=== PATIENT | male | born 1975 ===

== ENCOUNTER 2024-12-29 07:54 | Outpatient (REF) | payer OTHER, SELFPAY ==
--- OUTSIDE RECORDS SUMMARY | 2024-12-29 07:57 | XMS_ITS | Clinical Summary ---
Author Organization [facility] Address [address] [place] [address] Care Team Providers Care Manager In Training Name Role Phone Gavino Jarvis Primary Care Provider [phone] Allergies Active Allergy Reactions Criticality Noted Date Comments Penicillins Anaphylaxis High 02/08/2010 Medications hydroCHLOROthiaz landon (HYDRODIURIL) 12.5 mg tablet Take 12.5 mg by mouth. 05/04/2021 Active amLODIPine (NORVASC) 5 mg tablet Take 5 mg by mouth once a day. 05/04/2021 Active Active Problems Problem Noted Date Diagnosed Date Bone lesion 05/11/2021 Overview (05/22/2021): CT scan 04/2021: There is 7 mm radiolucent lesion in the posterior aspect of the right iliac bone without cortical break or abnormalities in the adjacent soft tissues; Referred to ortho Claudication 04/29/2019 Peripheral vascular disease 05/13/2018 Anal fistula 08/21/2016 External hemorrhoid 07/23/2016 Steatohepatitis, non-alcoholic 11/18/2013 Overview (05/22/2021): Associated with obesity History of GI bleed 01/07/2013 Overview (05/22/2021): Chronic small volume rectal bleeding. Neg CN 01/07/2013. 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 Family History Medical History Relation Name Comments Cancer Neg Hx Social History Tobacco Use Types Packs/Day Years Used Date Smoking Tobacco: Never Smokeless Tobacco: Never Alcohol Use Standard Drinks/Week Comments Not Currently 0 (1 standard drink = 0.6 oz pur e alcohol) Sex and Gender Information Value Date Recorded Sex Assigned at Male 05/21/2021 7:43 PM EDT Legal Sex Male 3:04 PM EDT Gender Identity Male 05/21/2021 7:43 PM EDT Sexual Orientation Straight 05/21/2021 7: 43 PM EDT 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 Not on file Not on file Not on fi le Last Filed Vital Signs Vital Sign Reading Time Taken Comments Blood Pressure 132/87 05/22/2021 10:54 AM EDT Pulse 69 05/22/2021 10:54 AM EDT Temperature - - Respiratory Rate - - Oxygen Saturation - - Inhaled Oxygen Concentration - - Weight 125.2 kg (276 lb) 05/22/2021 10:54 AM EDT Height 167.6 cm (5' 6 ) 05/22/2021 10:54 AM EDT Body Mass Index 44.55 05/22/2021 10:54 AM EDT Plan of Treatment Health Maintenance Due Date Last Done Comments Cologuard 1976 Colon Cancer Screening 1976 Colonoscopy 1976 FOBT / Fit Test 1976 HIV Screening 1976 Hepatitis C Screening 1976 Sigmoidoscopy 1976 Hepatitis B Vaccines (1 of 3 - 19+ 3-dose series) 1995 DTaP,Tdap,and Td Vaccines (2 - Td or Tdap) 07/08/2019 07/08/2009 Basic Metabolic Panel 04/03/2022 04/03/2021 COVID-19 Vaccine ( - 2023-2 5 season) 2024 Alcohol/Substance Use Screening 09/23/2024 Depression Screening and Follow-Up 09/23/2024 Social Drivers of Health Isabel ual Screening 09/23/2024 Influenza Vaccine (Season Ended) 2025 07/23/20 16 RSV Vaccine (60+ years old a nd patients) (1 - 1-dose 75+ series) 2051 Pneumococcal Vaccine: Pediat an (0-5 Years) and At-Risk Patients (6-50 Years) Aged Out No longer eligible b ased on patient's age to complete this topic Insurance [employer] Care Teams Manager In Training Relationship Specialty Start Date End Date Gavino Jarvis PCP - General 05/11/21
--- OUTSIDE RECORDS SUMMARY | 2024-12-29 07:57 | XMS_ITS | Clinical Summary ---
Author Organization [employer] Address [address] [place] [address] [address] [place] [address] Care Team Providers Care Oceanographer Physical Name Role Phone Unavailable Primary Care Provider Unavailabl e Social History Tobacco Use Types Packs/Day Years Used Date Smoking Tobacco: Never Assessed Sex and Gender Information Value Date Recorded Sex Assigned at Male 07/23/2022 10:23 AM EDT Legal Sex Male 10:23 AM EDT Gender Identity Male 07/23/2022 10:23 AM EDT Sexual Orientation Straight 07/23/2022 10 :23 AM EDT Plan of Treatment Health Maintenance Due Date Last Done Comments CT Colonography 1976 Colonoscopy 1976 Colorectal Cancer Screening 1976 Depression Screening 1976 FIT DNA/Cologuard 1976 FIT 1976 FOBT 1976 Lipid Panel 1976 Sigmoidoscopy 1976 Alcohol/Substance Use Screening 1988 Tobacco Screening 1988 Family Planning (PISQ) 1991 Hepatitis B Vaccines (1 of 3 - 19+ 3-dose series) 1995 COVID-19 Vaccine (2023-2 5 season) 2024 Influenza Vaccine (#1) 2024 07/23/2016 Zoster Vaccines (1 of 2) 2026 DTaP/Tdap/Td Vaccines (3 - T d or Tdap) 07/19/2033 07/19/2023, 07/08/2009 RSV Patients and Patients Aged 60 years or older (1 - 1-dose 75+ series) 2051 HIB Vaccines Aged Out No longer eligi ble based on patient's age to complete this topic HPV Vaccines Aged Out No longer eligi ble based on patient's age to complete this topic Hepatitis A Vaccines Aged Out No long er eligible based on patient's age to complete this topic IPV Vaccines Aged Out No longer eligi ble based on patient's age to complete this topic Meningococcal Vaccine Aged Out No magnus alen eligible based on patient's age to complete this topic Pneumococcal Vaccine: Pediatrics (0 to 5 Years) and At-Risk Patients (6 to 49) Years) Aged Out No longer eligible b ased on patient's age to complete this topic RSV under 20 months Aged Out No longe r eligible based on patient's age to complete this topic Rotavirus Vaccines Aged Out No longer eligible based on patient's age to complete this topic
--- OUTSIDE RECORDS SUMMARY | 2024-12-29 07:57 | XMS_ITS | Clinical Summary ---
Author Organization [place] [id number] [address] [facility], [facility] Building Address [address] [place] [id number] Phone Care Team Providers Care Manager Poker Name Role Phone Gavino Jarvis MD Primary Care Provider [phone] Allergies Active Allergy Reactions Criticality Noted Date Comments Penicillins 02/08/2010 Medications hydroCHLOROthiazi de (HYDRODIURIL) 25 mg tabletIndications :Primary hypertension Take 1 tablet (25 mg total) by mouth 1 (one) time each day. 30 each 5 11/12/2024 05/11/20 25 Active amLODIPine (NORVASC) 5 mg tablet Take 1 tablet (5 mg total) by mouth 1 (one) time each day. 90 each 1 11/12/2024 05/11/20 25 Active Active Problems Problem Noted Date Diagnosed Date Severe obesity (BMI 35.0-35.9 with comorbidity) 11/12/2024 Non-compliance 06/12/2023 Bone lesion 05/11/2021 Overview (10/07/2024): CT scan 04/2021: There is 7 mm radiolucent lesion in the posterior aspect of the right iliac bone without cortical break or abnormalities in the adjacent soft tissues; Referred to ortho Claudication 04/29/2019 Peripheral vascular disease 05/13/2018 Anal fistula 08/21/2016 External hemorrhoid 07/23/2016 Steatohepatitis, non-alcoholic 11/18/2013 Overview (10/07/2024): Associated with obesity Corneal scar 07/11/2009 Pterygium 07/11/2009 Hypertension 07/08/2009 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 Encounters Date Type Department Care Team Description 11/12/2024 8:15 AM EST Office Visit Internal Medicine - [facility] [address] [place] [id number] Gavino Jarvis MD Severe obesity (BMI 35.0-35.9 with comorbidity) (CMS/HCC) (Primary Dx); Primary hypertension; Sweating abnormality from Last 3 Months Immunizations Name Administration Dates Next Due Influenza trivalent, with pr eservative (Fluzone; Afluria) 6mo and older 07/23/2016 Td Tetanus diptheria (Tdvax) 7yo and older 07/19 Tdap Tetanus diptheria acell ular pertussis (Boostrix; Adacel) 7yo and older 07/08/2009 Surgical History Surgery Date Site/Laterality Comments TONSILLECTOMY PROCEDURE: HISTORICAL TONSILLECTOMY COLONOSCOPY 2012 PROCEDURE: HISTORICAL COLONOSCOPY; COMMENT: normal OTHER SURGICAL HISTORY 2015 PROCEDURE: OK SURG TX ANAL FISTULA INTERSPHINCTERIC; COMMENT: Dr Mazariegos @ [facility]. Medical History Medical History Date Comments Osteoma of nasal sinus DX:Osteom a of nasal sinus; COMMENT: surgery scheduled for 02/15/10 Steatohepatitis, non-alcoholic 11/18/2013 D X:Steatohepatitis, non-alcoholic; COMMENT: Associated with obesity Claudication (CMS/HCC) 04/29/2019 DX:Claudi cation ([facility]) Corneal scar 07/11/2009 DX:Corneal scar External hemorrhoid 07/23/2016 DX:External hemorrhoid Anal fistula 08/21/2016 DX:Anal fistula History of GI bleed 01/07/2013 DX:History o f GI bleed; COMMENT: Chronic small volume rectal bleeding. Neg CN 01/07/2013. Hypertension 07/08/2009 DX:Hypertension Morbid obesity with BMI of 4 5.0-49.9, adult (CMS/HCC) 03/03/2010 DX:Morbid obesity with BMI o f 45.0-49.9, adult ([facility]) Peripheral vascular disease (CMS/HCC) 05/13/2018 DX:Peripheral vascular disease (HCC) Pterygium 07/11/2009 DX:Pterygium Family History Medical History Relation Name Comments Blindness Father Cataracts Father Cataracts Uncle paternal retini tis pigmentosa Glaucoma Neg Hx Macular degeneration Neg Hx Strabismus Neg Hx Relation Name Status Comments Brother Alive Father Alive Mother Alive Sister Alive Uncle Social History Tobacco Use Types Packs/Day Years Used Date Smoking Tobacco: Never Smokeless Tobacco: Never Alcohol Use Standard Drinks/Week Comments Yes 0 (1 standard drink = 0.6 oz pur e alcohol) Sex and Gender Information Value Date Recorded Sex Assigned at Not on file Legal Sex Male 4:34 AM EST Gender Identity Not on file Sexual Orientation Not on file Obstetrics History Last Filed Vital Signs Vital Sign Reading Time Taken Comments Blood Pressure 164/104 11/12/2024 8:07 AM EST Pulse 70 11/12/2024 8:07 AM EST Temperature - - Respiratory Rate - - Oxygen Saturation - - Inhaled Oxygen Concentration - - Weight 109 kg (239 lb 3.2 oz) 11/12/2024 8:07 AM EST Height 167.6 cm (5' 6 ) 11/12/2024 8:07 AM EST Body Mass Index 38.61 11/12/2024 8:07 AM EST Plan of Treatment Upcoming Encounters Date Type Department Care Team (Late st Contact Info) Description 04/06/2025 8:30 AM EDT Office Visit Internal Medicine - [address] [phone] Gavino Jarvis MD [address] [place] [id number] Health Maintenance Due Date Last Done Comments Hepatitis B Vaccines (1 of 3 - 19+ 3-dose series) 1995 Pneumococcal Vaccine: Pediatrics (0 to 5 Years) and At-Risk Patients (6 to 64 Years) (1 of 2 - PCV) 1995 Depression Screening 08/26/2022 HIV Screening 08/26/2022 Hepatitis C Screening 08/26/2022 Social Influencers of Health Screening 08/26/2022 COVID-19 Vaccine (1 - 2023-2 5 season) 2024 Influenza Vaccine (#1) 2024 07/23/2016 Hypertension/CHF/CAD Annual BMP Blood Test 11/12/2025 11/12/2024, 03/05/2024, 03/05/2024 Cholesterol Screening (Lipid Panel) 11/12/2029 11/12/2024, 03/05/2024, 03/05/2024 Colorectal Cancer Screening: Colonoscopy 01/18/2032 01/17/2022 DTaP,Tdap,and Td Vaccines (3 - Td or Tdap) 07/19/2033 07/19/2023, 07/08/2009 HIB Vaccines Aged Out No longer eligi [...] on patient's age to complete this topic MMR Vaccines Aged Out No longer eligi ble based on patient's age to complete this topic Meningococcal ACWY Vaccine Aged Out N o longer eligible based on patient's age to complete this topic Meningococcal B Vaccine Aged Out No l onger eligible based on patient's age to complete this topic RSV Immunization Patients Under 20 months Aged Out No longer eligible b ased on patient's age to complete this topic Varicella Vaccines Aged Out No longer eligible based on patient's age to complete this topic Procedures Procedure Name Priority Date/Time Associated Diagnosis Comments ALANINE AMINOTRANSFERASE Routine 025 8:45 AM EST Primary hypertension ASPARTATE AMINOTRANSFERASE Routine 11/12/2024 8:45 AM EST Primary hypertension BASIC METABOLIC PANEL Routine 11/12/2024 8:45 AM EST Primary hypertension LIPID PANEL WITH REFLEX TO DIRECT LDL Routine 11/12/2024 8:45 AM EST Primary hypertension HM COLONOSCOPY Routine 01/17/2022 from Last 3 Months or Most Recently Relevant to Health Maintenance Results * (ABNORMAL) Lipid panel with reflex to direct LDL (11/12/2024 8:45 AM EST) Cholesterol 191 0 - 200 mg/dL LAB CHEMISTRY METHOD 11/12/2024 12:44 PM [facility] Triglycerides 186(H) 0 - 150 mg/dL LAB CHEMISTRY METHOD 11/12/2024 12:44 PM [facility] HDL 63 >=40 mg/dL LAB CHEMISTRY METHOD 11/12/2024 12:44 PM [facility] LDL Calculated 91 0 - 100 mg/dL LAB CHEMISTRY METHOD 11/12/2024 12:[address] [facility] VLDL Cholesterol Eddie 37.2 mg/dL LAB CHEMISTRY METHOD 11/12/2024 12:44 PM [facility] Non HDL Chol. (LDL+VLDL) 128 <145 mg/dL LAB CHEMISTRY METHOD 11/12/2024 12:44 PM [facility] Chol/HDL Ratio 3.0 0.0 - 4.4 LAB CHEMISTRY METHOD 11/12/2024 12:44 PM [facility] Blood Venous blood specimen / Unknown Venipuncture / Unknown 11/12/2024 8:45 AM EST 11/12/2024 8:45 AM EST us Gavino Jarvis MD LAB BLOOD ORDERABLES Final Res ult [facility] [address] [place] [address], * Alanine aminotransferase (11/12/2024 8:45 AM EST) ALT (SGPT) 35 10 - 60 unit/L LAB CHEMISTRY METHOD 11/12/2024 12:42 PM [facility] Blood Venous blood specimen / Unknown Venipuncture / Unknown 11/12/2024 8:45 AM EST 11/12/2024 8:45 AM EST us Gavino Jarvis MD LAB BLOOD ORDERABLES Final Res ult Performing Organization Address [facility]/ZIP Co de Phone Number [facility] [address] [place] [address], * Aspartate aminotransferase (11/12/2024 8:45 AM EST) AST (SGOT) 27 10 - 42 unit/L LAB CHEMISTRY METHOD 11/12/2024 12:42 PM [facility] Blood Venous blood specimen / Unknown Venipuncture / Unknown 11/12/2024 8:45 AM EST 11/12/2024 8:45 AM EST Gavino Jarvis MD LAB BLOOD ORDERABLES Final Res ult Performing Organization Address [facility]/ZIP Co de Phone Number [facility] [address] [place] [address], [place] [phone] * Basic metabolic panel (11/12/2024 8:45 AM EST) Sodium 136 133 - 145 mmol/L LAB CHEMISTRY METHOD 11/12/2024 12:42 PM [facility] Potassium 4.1 3.5 - 5.5 mmol/L LAB CHEMISTRY METHOD 11/12/2024 12:42 PM [facility] Chloride 101 96 - 110 mmol/L LAB CHEMISTRY METHOD 11/12/2024 12:42 PM [facility] CO2 29 21 - 32 mmol/L LAB CHEMISTRY METHOD 11/12/2024 12:42 PM [facility] Anion Gap 6 3 - 11 LAB CHEMISTRY METHOD 11/12/2024 12:42 PM [facility] Glucose 99 70 - 100 mg/dL LAB CHEMISTRY METHOD 11/12/2024 12:42 PM [facility] BUN 14 5 - 25 mg/dL LAB CHEMISTRY METHOD 11/12/2024 12:42 PM [facility] Creatinine 0.95 0.70 - 1.30 mg/dL LAB CHEMISTRY METHOD 11/12/2024 12:[address] [facility] eGFR 99 >=60 mL/min/1. 73m2 LAB CHEMISTRY METHOD 11/12/2024 12:[address] [facility] Comment:Calculation based on the??Chronic Kidney Disease Epidemiology Collaboration (CKD-EPI) equation refit??without adjustment for race. BUN/Creatinine Ratio 14.7 LAB CHEMISTRY METHOD 11/12/2024 12:[address] [facility] Calcium 9.1 8.5 - 10.5 mg/dL LAB CHEMISTRY METHOD 11/12/2024 12:[address] [facility] Blood Venous blood specimen / Unknown Venipuncture / Unknown 11/12/2024 8:45 AM EST 11/12/2024 8:45 AM EST Gavino Jarvis MD LAB BLOOD ORDERABLES Final Res ult [facility] [address] [place] [address], * Colonoscopy (01/17/2022) Colonoscopy no interpretation , abstracted Anatomical Region Laterality Modality Other Historical Provider HEALTH MAINTENANCE Final Result from Last 3 Months or Most Recently Relevant to Health Maintenance Insurance [facility] [employer] [facility] Care Teams Manager Poker Relationship Specialty Start Date End Date Gavino Jarvis MD [address] [place] [id number] PCP - General Internal Medicine 11/10/24
--- OUTSIDE RECORDS SUMMARY | 2024-12-29 07:57 | XMS_ITS | Encounter Summary ---
Author Organization [facility] Address [address] [facility] [address] [place] [address] Care Team Providers Care Presser And Shaper Knitted Goods Name Role Phone Unavailable Primary Care Provider Unavailabl e Encounter Details Date Type Department Care Team (Latest Contact Info) Description 04/20/2022 Abstract [facility] CONVERSIONS Dental, Provider, DDS Social History Tobacco Use Types Packs/Day Years Used Date Smoking Tobacco: Never Assessed Sex and Gender Information Value Date Recorded Sex Assigned at Male 07/23/2022 10:23 AM EDT Legal Sex Male 10:23 AM EDT Gender Identity Male 07/23/2022 10:23 AM EDT Sexual Orientation Straight 07/23/2022 10 :23 AM EDT documented as of this encounter Plan of Treatment Not on file documented as of this encounter Visit Diagnoses Not on filedocumented in this encounter
--- OUTSIDE RECORDS SUMMARY | 2024-12-29 07:57 | XMS_ITS | Encounter Summary ---
Author Organization [facility] Address [address] [place] [address] Care Team Providers Care Sand Polisher Name Role Phone Unavailable Primary Care Provider Unavailabl e Encounter Details Date Type Department Care Team (Latest Contact Info) Description 09/02/2020 Abstract C CONVERSIONS Dental, Provider, DDS Social History Tobacco [...]
--- OUTSIDE RECORDS SUMMARY | 2024-12-29 07:57 | XMS_ITS | Referral Summary ---
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
== END 2024-12-29 07:55 | disposition home or self-care (01) ==
LOC: HO.HOSX 07:54
DX: M25.531 Pain in right wrist (principal); R61 Generalized hyperhidrosis
CPT/HCPCS: 99202

== ENCOUNTER 2024-12-29 08:07 | Outpatient (AMB) | payer OTHER, SELFPAY ==
--- OUTSIDE RECORDS SUMMARY | 2024-12-29 08:19 | XMS_ITS | Referral Summary ---
Author Organization [facility] Address [address] [place] [address] Care Team Providers Care Architecture Consultant Name Role Phone Gavino Jarvis Primary Care Provider [phone] Allergies Active Allergy Reactions Criticality Noted Date [...] Treatment Not on file [place] [address] Care Teams Architecture Consultant Relationship Specialty Start Date End Date Gavino Jarvis PCP - General 05/11/21
--- OUTSIDE RECORDS SUMMARY | 2024-12-29 08:19 | XMS_ITS | Encounter Summary ---
Author Organization [facility] Address [address] [facility] [address] [place] [address] Care Team Providers Care Technical Training Specialist Name Role Phone Unavailable Primary Care Provider [...]
--- OUTSIDE RECORDS SUMMARY | 2024-12-29 08:19 | XMS_ITS | Clinical Summary ---
Author Organization [employer] Address [address] [place] [address] [address] [place] [address] Care Team Providers Care Senior Field Engineer Name Role Phone Unavailable Primary Care Provider [...]
--- OUTSIDE RECORDS SUMMARY | 2024-12-29 08:19 | XMS_ITS | Encounter Summary ---
Author Organization [facility] Address [address] [place] [address] Care Team Providers Care Reference Test Clerk Name Role Phone Unavailable Primary Care Provider [...]
--- OUTSIDE RECORDS SUMMARY | 2024-12-29 08:19 | XMS_ITS | Clinical Summary ---
Author Organization [place] [address] [address] [facility] Address [address] [place] [phone] Phone Care Team Providers Care State Archivist Name Role Phone Gavino Jarvis MD Primary Care Provider [phone] Allergies Active Allergy Reactions Criticality Noted Date [...] Visit Internal [facility] - [facility] [address] [place] [id number] Gavino Jarvis MD Severe obesity (BMI 35.0-35.9 [...] COMMENT: normal OTHER SURGICAL HISTORY 2015 PROCEDURE: [place] SURG TX ANAL FISTULA INTERSPHINCTERIC; COMMENT: Dr Mazariegos @ [facility]. Medical History Medical History Date Comments Osteoma of nasal sinus DX:Osteom a of nasal sinus; COMMENT: surgery scheduled for 02/15/10 Steatohepatitis, non-alcoholic 11/18/2013 D X:Steatohepatitis, non-alcoholic; COMMENT: Associated with obesity Claudication (CMS/HCC) 04/29/2019 DX:Claudi cation ([facility]) Corneal scar 07/11/2009 DX:Corneal scar External hemorrhoid 07/23/2016 DX:External hemorrhoid Anal fistula 08/21/2016 DX:Anal fistula History of GI bleed 01/07/2013 DX:History o f GI bleed; COMMENT: Chronic small volume rectal bleeding. Neg CN 01/07/2013. Hypertension 07/08/2009 DX:Hypertension Morbid obesity with BMI of 4 5.0-49.9, adult (CMS/HCC) 03/03/2010 DX:Morbid obesity with BMI o f 45.0-49.9, adult ([facility]) Peripheral vascular disease (CMS/HCC) 05/13/2018 DX:Peripheral vascular [...] AM EDT Office Visit Internal Medicine - [address] [phone] Gavino Jarvis MD [address] [place] [phone] Health Maintenance Due Date Last Done Comments [...] mg/dL LAB CHEMISTRY METHOD 11/12/2024 12:44 PM [facility] Triglycerides 186(H) 0 - 150 mg/dL LAB CHEMISTRY METHOD 11/12/2024 12:44 PM [facility] HDL 63 >=40 mg/dL LAB CHEMISTRY METHOD 11/12/2024 12:44 PM [facility] LDL Calculated 91 0 - 100 mg/dL LAB CHEMISTRY METHOD 11/12/2024 12:44 PM EST [facility] VLDL Cholesterol Eddie 37.2 mg/dL LAB CHEMISTRY METHOD 11/12/2024 12:44 PM [facility] Non HDL Chol. (LDL+VLDL) 128 <145 mg/dL LAB CHEMISTRY METHOD 11/12/2024 12:44 PM [facility] Chol/HDL Ratio 3.0 0.0 - 4.4 LAB CHEMISTRY METHOD 11/12/2024 12:44 PM [facility] Blood Venous blood specimen / Unknown Venipuncture / Unknown 11/12/2024 8:45 AM EST 11/12/2024 8:45 AM EST us Gavino Jarvis MD LAB BLOOD ORDERABLES Final Res ult [facility] [address] [place] [address], * Alanine aminotransferase (11/12/2024 8:45 AM EST) ALT (SGPT) 35 10 - 60 unit/L LAB CHEMISTRY METHOD 11/12/2024 12:42 PM [facility] Blood Venous blood specimen / Unknown Venipuncture / Unknown 11/12/2024 8:45 AM EST 11/12/2024 8:45 AM EST us Gavino Jarvis MD LAB BLOOD ORDERABLES Final Res ult Performing Organization Address [facility]/ZIP Co de Phone Number [facility] [address] [place] [address], * Aspartate aminotransferase (11/12/2024 8:45 AM EST) AST (SGOT) 27 10 - 42 unit/L LAB CHEMISTRY METHOD 11/12/2024 12:42 PM [facility] Blood Venous blood specimen / Unknown Venipuncture / Unknown 11/12/2024 8:45 AM EST 11/12/2024 8:45 AM EST Gavino Jarvis MD LAB BLOOD ORDERABLES Final Res ult Performing Organization Address [facility]/ZIP Co de Phone Number [facility] [address] [place] [address], [place] [phone] * Basic metabolic panel (11/12/2024 8:45 AM EST) Sodium 136 133 - 145 mmol/L LAB CHEMISTRY METHOD 11/12/2024 12:42 PM [facility] Potassium 4.1 3.5 - 5.5 mmol/L LAB CHEMISTRY METHOD 11/12/2024 12:42 PM [facility] Chloride 101 96 - 110 mmol/L LAB CHEMISTRY METHOD 11/12/2024 12:42 PM [facility] CO2 29 21 - 32 mmol/L LAB CHEMISTRY METHOD 11/12/2024 12:42 PM [facility] Anion Gap 6 3 - 11 LAB CHEMISTRY METHOD 11/12/2024 12:42 PM [facility] Glucose 99 70 - 100 mg/dL LAB CHEMISTRY METHOD 11/12/2024 12:42 PM [facility] BUN 14 5 - 25 mg/dL LAB CHEMISTRY METHOD 11/12/2024 12:42 PM [facility] Creatinine 0.95 0.70 - 1.30 mg/dL LAB CHEMISTRY METHOD 11/12/2024 12:42 PM EST [facility] eGFR 99 >=60 mL/min/1. 73m2 LAB CHEMISTRY METHOD 11/12/2024 12:42 PM EST [facility] Comment:Calculation based on the??Chronic Kidney Disease Epidemiology Collaboration (CKD-EPI) equation refit??without adjustment for race. BUN/Creatinine Ratio 14.7 LAB CHEMISTRY METHOD 11/12/2024 12:42 PM EST [facility] Calcium 9.1 8.5 - 10.5 mg/dL LAB CHEMISTRY METHOD 11/12/2024 12:42 PM EST [facility] Blood Venous blood specimen / Unknown Venipuncture / Unknown 11/12/2024 8:45 AM EST 11/12/2024 8:45 AM EST Gavino Jarvis MD LAB BLOOD ORDERABLES Final Res ult [facility] [address] [place] [address], * Colonoscopy (01/17/2022) Colonoscopy no interpretation , abstracted Anatomical Region Laterality Modality Other Historical Provider HEALTH MAINTENANCE Final Result from Last 3 Months or Most Recently Relevant to Health Maintenance Insurance [facility] Care Teams State Archivist Relationship Specialty Start Date End Date Gavino Jarvis MD [address] [place] [phone] PCP - General Internal Medicine 11/10/24
--- OUTSIDE RECORDS SUMMARY | 2024-12-29 08:19 | XMS_ITS | Clinical Summary ---
Author Organization [facility] Address [address] [place] [address] Care Team Providers Care Passenger Elevator Operator Name Role Phone Gavino Jarvis Primary Care Provider [phone] Allergies Active Allergy Reactions Criticality Noted Date [...] this topic Insurance [employer] Care Teams Passenger Elevator Operator Relationship Specialty Start Date End Date Gavino Jarvis PCP - General 05/11/21
--- NOTE | 2024-12-29 08:28 | A.OFFVIS_ITS ---
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 Patient reports swelling in both of his hands has has been present since he was a child. He wa kes up with swelling in his hands and feet. He profusely sweats in both of his hands, stating his hands become soaked. At night he has numbness and tingling. Hx of left hand CTR. No other tx. Denies injury. 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 Patient reports swelling in both of his hands has has been present since he was a child. He wakes up with swelling in his hands and feet. He profusely sweats in both of his hands, stating his hands become soaked. At night he has numbness and tingling. Hx of left hand CTR. No other tx. Denies injury. 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 Neuro: Normal sensation of the tips of all digits of the bilateral hands at this time Vascular: Cap refill brisk Pain: No tenderness to palpation of bilateral hands No pain with ROM ROM: Patient is able to make a closed fist and extend all digits of bilateral hands fully Skin: Significant sweating noted on bilateral hands No lacerations or abrasions. General: No ecchymosis, erythema, or evidence of infection. Psych: Appears grossly normal Affect normal Attitude cooperative Assessment & Plan Assessment & Plan (1) Hyperhidrosis: Code(s): R61 - Generalized hyperhidrosis Category: Medical Plan 1. Hyperhidrosis of bilateral hands At this time, patient was educated that this is not something that we treated in this office, and he should follow-up with his primary care provider for this Patient is educated if he begins to experience pain or any other symptoms of the hands, he should call us for reassessment Patient was amenable to this plan Orders: Orders XR wrist RT min 3V Today M25.531 - Pain in right wrist Coding Level of Care Code New Pt Level 3 (35515) Diagnoses Hyperhidrosis R61
[2024-12-29 08:32] VITALS: BMI 38.7
== END 2024-12-29 08:48 | disposition home or self-care (01) ==
LOC: HO.HOS 08:07
PROVIDERS: PCP Internal Medicine
DX: R22.31 Localized swelling, mass and lump, right upper limb (principal); R61 Generalized hyperhidrosis
CPT/HCPCS: 99203